=== PATIENT | male | born 1955 | race Caucasian/White ===

== ENCOUNTER 2022-07-14 09:06 | Emergency (ER) | payer OTHER ==
[~2022-07-14] VITALS: Ht 177.8 cm; Wt 84.4 kg
[2022-07-14 09:09] VITALS: BP_SYST 98
[2022-07-14] MEDS ORDERED: IBUPROFEN 600 MG TABLET PO ONE (09:30)
[2022-07-14] MEDS ORDERED: IBUP-1969 PO ×2 (11:08)
[2022-07-14 11:13] VITALS: BP_SYST 102
[2022-07-14] MEDS ORDERED: HYDROcodone/ACETAMIN 5-325 MG TAB (NORCO/ VICODIN) PO ONE (11:15)
[2022-07-14] MEDS ORDERED: QUET300T2 PO (14:49)
[2022-07-14] MEDS ORDERED: LISI40TA13 PO (14:49)
[2022-07-14] MEDS ORDERED: TRAZ-251 PO (14:49)
== END 2022-07-14 11:13 | disposition home or self-care (01) ==
LOC: SED 09:06
DX: S93.401A Sprain of unspecified ligament of right ankle, initial encounter (principal); Z79.899 Other long term (current) drug therapy; X50.1XXA Overexertion from prolonged static or awkward postures, initial encounter; Y93.89 Activity, other specified; Y92.89 Other specified places as the place of occurrence of the external cause; Y99.8 Other external cause status
CPT/HCPCS: 99284; 73610; 73620; J7030

== ENCOUNTER 2022-07-14 11:49 | Inpatient (IN) | payer OTHER ==
[~2022-07-14] VITALS: Ht 177.8 cm; Wt 79.8 kg
[~2022-07-14 11:49] MED LIST: IBUP-1969 PO
[2022-07-14 11:52] VITALS: BP_SYST 122
--- NOTE | 2022-07-14 11:55 | NUR ---
Placed in room 5 . Placed on cardiac cath technician, blood pressure machine and pulse oximeter. To gown for exam. Side rails up. Report given to GABRIELE VARGAS.
--- NOTE | 2022-07-14 11:58 | NUR ---
RECEIVED PT FROM GABRIELE PEREZ. PT HAS C/O FALLING ON HIS BOTTOM WHEN ATTEMPTING TO GET UP AND GET INTO UBER. DR. DENIS AT BEDSIDE TO ASSESS. SIDERAILS UP X2. PT DENIES PAIN.
[2022-07-14 12:36] LABS: BASOPHILS % (AUTO) 0.2 % (0.0-2.0); HEMATOCRIT 42.3 % (36-54); HEMOGLOBIN 14.4 g/dL (14.0-18.0); LYMPHOCYTES # (AUTO) 0.7 K/uL (1.0-5.5); LYMPHOCYTES % (AUTO) 5.8 % (20.5-51.5); MEAN CORPUSCULAR HEMOGLOBIN 33 pg (27-31); MEAN CORPUSCULAR HGB CONC 34 % (32-36); MEAN CORPUSCULAR VOLUME 96 fL (79.0-98.0); MONOCYTES # (AUTO) 0.9 K/uL (0.0-1.0); MONOCYTES % (AUTO) 7.3 % (1.7-9.3); NEUTROPHILS # (AUTO) 10.2 K/uL (1.8-7.7); NEUTROPHILS % (AUTO) 86.7 % (40.0-70.0); PLATELET COUNT (AUTO) 182 K/uL (130-430); RED BLOOD CELL COUNT(AUTO) 4.42 MIL/uL (4.2-6.2); RED CELL DISTRIBUTION WIDTH 12.9 % (9.0-15.0); WHITE BLOOD COUNT (AUTO) 11.7 K/uL (4.8-10.8)
[2022-07-14 12:38] LABS: ANION GAP 18 (5-15); CALCIUM 7.4 mg/dL (8.4-11.0); CHLORIDE 98 mmol/L (98-107); CREATININE 2.92 mg/dL (0.55-1.30); GLUCOSE 145 mg/dL (70-99); UREA NITROGEN, BLOOD 37 mg/dL (8-21)
--- NOTE | 2022-07-14 12:40 | NUR ---
URINE OBTAINED AND TAKEN TO LAB.
[2022-07-14 12:43] LABS: INR 1.1 (0.80-1.20)
[2022-07-14 12:44] LABS: ALANINE AMINOTRANSFERASE 82 U/L (12-78); ALBUMIN 3.9 g/dL (3.4-4.8); ASPARTATE AMINOTRANSFERASE 204 U/L (10-37)
[2022-07-14 12:45] LABS: ACETAMINOPHEN < 1 ug/mL (1-30); ALCOHOL, BLOOD < 3 mg/dL (<10); GFR AFRICAN AMERICAN 28 mL/min (>90)
[2022-07-14] MEDS ORDERED: NACL 0.9% 1,000 ML IV ONE ×3 (12:45→18:15)
--- NOTE | 2022-07-14 12:50 | NUR ---
MAURICIO NOBLE (EX-) [phone] FOR STATUS UPDATE
[2022-07-14 13:09] LABS: BILIRUBIN,URINE NEGATIVE (NEGATIVE); BLOOD, URINE 3+ (NEGATIVE); CLARITY/URINE CLEAR (CLEAR); COLOR,URINE YELLOW (YELLOW); GLUCOSE,URINE NEGATIVE (NEGATIVE); KETONES,URINE TRACE (NEGATIVE); LEUKOCYTE ESTERASE ,URINE NEGATIVE (NEGATIVE); NITRITE, URINE NEGATIVE (NEGATIVE); PH,URINE 5.5 (5.0-8.0); PROTEIN URINE 1+ (NEGATIVE); UROBILINOGEN,URINE 0.2 (0.2-1.0)
--- NOTE | 2022-07-14 13:13 | NUR ---
LACTIC ACID 6.9 REPORTED BY LAB. PRIMARY NURSE MADE AWARE.
[2022-07-14 13:22] LABS: BARBITURATE, URINE NEGATIVE (NEG <=200); BENZODIAZEPINE, URINE NEGATIVE (NEG <=150); CANNABINOID, URINE NEGATIVE (NEG <=50); COCAINE, URINE NEGATIVE (NEG <=150); METHAMPHETAMINES SCREEN,URINE NEGATIVE (NEG <=500); OPIATE, URINE NEGATIVE (NEG <=100); PHENCYCLIDINE SCREEN,URINE NEGATIVE (NEG <=25); UR TRICYCLIC ANTIDEPRESSANTS POSITIVE (NEG <=300); URINE AMPHETAMINE NEGATIVE (NEG <=500); URINE METHADONE NEGATIVE (NEG <=200); URINE OXYCODONE SCREEN NEGATIVE (NEG <=100); URINE PROPOXYPHENE SCREEN NEGATIVE (NEG <=300)
[2022-07-14] MEDS ORDERED: QUET300T2 PO (14:49)
[2022-07-14] MEDS ORDERED: LISI40TA13 PO (14:49)
[2022-07-14] MEDS ORDERED: TRAZ-251 PO (14:49)
[2022-07-14 14:55] LABS: BACTERIA,URINE FEW /HPF (None Seen); WBC,URINE 0-3 /HPF (0-3)
[2022-07-14 14:56] LABS: HYALINE CASTS, URINE 0-10 /LPF (None Seen)
--- NOTE | 2022-07-14 14:56 | NUR ---
COVID SWAB SENT TO LAB.
--- NOTE | 2022-07-14 17:25 | NUR ---
Admit bed requested Patient will be admitted to care of . Admitted to TELE unit. Diagnosis ELIOT & DEHYDRATION Inpatient (Yes or No) YES Observation (Yes or No) NO Orientation concerns or request close to nursing station (Yes or No) NO Covid Status NEGATIVE On vent or bipap NO Isolation requirements NO Needs a sitter NO From Home (Yes or if No enter name of facility) HOME Requires Dialysis (Yes or No) NO Med Rec Completed (Yes of No) YES
[2022-07-14] MEDS ORDERED: cefTRIAXone 1 GM IVPB PREMIX 50 ML IV ONE (18:15)
--- NOTE | 2022-07-14 18:18 | NUR ---
NS 1000ML BOLUS INTIATED, TO BE COMPLETED AT 1918, [place] IVPB GIVEN. PT DENIES PAIN.
--- NOTE | 2022-07-14 18:32 | NUR ---
DR. BALBUENA AT BEDSIDE TO ASSESS PT.
[2022-07-14] MEDS ORDERED: LORazepam 2 MG/ML VIAL IVP PRN (18:45)
--- NOTE | 2022-07-14 19:22 | NUR ---
ENDORSED ALL CARE TO GABRIELE TOPETE. ALL QUESTIONS AND CONCERNS ADDRESSED.
[2022-07-14] MEDS ORDERED: THIAMINE HCL 100 MG in NS 50 ML IV ONE (20:00)
[2022-07-14] MEDS ORDERED: PANTOPRAZOLE SODIUM 40 MG TAB PO ONE (20:00)
[2022-07-14] MEDS ORDERED: ASPIRIN 81 MG TABLET(ECOTRIN) PO ONE (20:00)
[2022-07-14] MEDS: 0.45% NACL 1,000 ML IV SCH (20:17)
[2022-07-14 20:51] LABS: CKMB RELATIVE INDEX 0.8 (0.0-2.9); CREATINE KINASE MB 46.5 ng/mL (0-3.6)
--- NOTE | 2022-07-14 21:04 | NUR ---
ADMISSION NOTE Received patient from ER via gurney. Patient admitted with diagnosis of ELIOT/dehydration. Patient is awake, alert, oriented X 4. Patient oriented to hospital room, call light, toileting (gave a urinal and offer bedpan), pain management and safety-teach back done. Patient informed that I ([facility]) will be his nurse and that their room number is 113-A. Pt is able to use call light for assistance with good return demonstration of safety measures and call light for assistance. Iv site of rt f/a patent, no ss/ any infiltration noted. NS @ 150ml/hr. VS 98.1, 20, 140/93,102, w7jeb=06% r/a. Rt ankle redness and ecchymosis s/p fall today. Rt foot (all toes redness and rt great toe dry scab)noted. will order wound care consult. Personal belongings checked and Belongings List documented. Fall precaution and Seizure precaution in place. Side railsx3, bed alarmed, Call light within reach. Cont to monitor pt. Addendum: 07/15/22 at 0246 by Bulmaro Mclain RN RN CORRECTION- IT'S 07/27 NS IVF, NOT NS.
[2022-07-14 21:05] VITALS: BP_SYST 140
--- NOTE | 2022-07-14 21:15 | NUR ---
Patient will be admitted to care of [facility]. Admitted to unit. Will go to room . Belongings list completed. Complete and up to date summary report printed. SBAR report to be given at bedside with opportunity for questions.
--- NOTE | 2022-07-14 21:20 | NUR ---
BEDPAN -Gave bedpan upon pt' request. pt stated that he wanted a bedpan for bowel movt. Pt just voided only yellow urine 200ml.
[2022-07-14 21:33] VITALS: BP_SYST 140
--- NOTE | 2022-07-15 00:38 | NUR ---
ROUNDS; -Pt is asleep. No s/s any acute distress noted. Bed alarmed, side rails x3, call light w/in reach. Cont to monitor pt.
[2022-07-15 00:43] VITALS: BP_SYST 148
--- NOTE | 2022-07-15 05:04 | NUR ---
CONSULTATION PAGED/CALLED Reason for Consultation: ELIOT Person Who was Notified: HERIBERTO Consulting Physician: Residential Subcontractor Specialty: Ordering Physician:
--- NOTE | 2022-07-15 05:22 | NUR ---
CONSULTATION PAGED/CALLED Reason for Consultation: ABNORMAL EKG Person Who was Notified: HERIBERTO Consulting Physician: RUBÉN Practical Nurse Clinical Coordinator Specialty: CARDIO Ordering Physician: DANIELITO
--- NOTE | 2022-07-15 05:28 | NUR ---
CONSULTATION PAGED/CALLED Reason for Consultation: ALOC Person Who was Notified: VIA TEXT Consulting Physician: Upper Trimmer Specialty: Ordering Physician:
--- NOTE | 2022-07-15 05:34 | NUR ---
BLADDER SCANNED -RESIDUAL 200ML OF BLADDER SCANNED.
--- NOTE | 2022-07-15 06:41 | NUR ---
CLOSING NOTES; -Pt is resting in bed comfortably. NO s/s any pain,sob,or any acute distress noted. pt's condition stable. IVF infusing well, no s/s any infiltration noted. bed alarmed, side rails x3, call light w/in reach. Will endorse to next nurse to cont care and to perform bladder scan q 6 hr and to straight catheter if residual than than 400ml and to notify md per md order.
[2022-07-15 08:45] LABS: BASOPHILS % (AUTO) 0.2 % (0.0-2.0); EOSINOPHILS # (AUTO) 0.1 K/uL (0.0-0.4); EOSINOPHILS % (AUTO) 1.7 % (0.0-4.0); HEMATOCRIT 36.7 % (36-54); HEMOGLOBIN 12.9 g/dL (14.0-18.0); LYMPHOCYTES # (AUTO) 1.2 K/uL (1.0-5.5); LYMPHOCYTES % (AUTO) 23.3 % (20.5-51.5); MEAN CORPUSCULAR HEMOGLOBIN 33 pg (27-31); MEAN CORPUSCULAR HGB CONC 35 % (32-36); MEAN CORPUSCULAR VOLUME 95 fL (79.0-98.0); MONOCYTES # (AUTO) 0.5 K/uL (0.0-1.0); MONOCYTES % (AUTO) 10.3 % (1.7-9.3); NEUTROPHILS # (AUTO) 3.4 K/uL (1.8-7.7); NEUTROPHILS % (AUTO) 64.5 % (40.0-70.0); PLATELET COUNT (AUTO) 153 K/uL (130-430); RED BLOOD CELL COUNT(AUTO) 3.88 MIL/uL (4.2-6.2); RED CELL DISTRIBUTION WIDTH 12.6 % (9.0-15.0); WHITE BLOOD COUNT (AUTO) 5.3 K/uL (4.8-10.8)
[2022-07-15 08:54] LABS: CALCIUM 7.7 mg/dL (8.4-11.0); CREATININE 0.93 mg/dL (0.55-1.30)
[2022-07-15 09:01] LABS: ALBUMIN 3.1 g/dL (3.4-4.8); PHOSPHORUS 2.1 mg/dL (2.7-4.5); TOTAL BILIRUBIN 1.3 mg/dL (0.0-1.0)
[2022-07-15] MEDS: 0.45% NACL 1,000 ML IV SCH ×3 (09:05→15:45)
[2022-07-15] MEDS: PANTOPRAZOLE SODIUM 40 MG TAB PO SCH (10:58)
[2022-07-15] MEDS: ASPIRIN 81 MG TABLET(ECOTRIN) PO SCH (10:58)
[2022-07-15] MEDS: FOLIC ACID 1 MG TABLET PO SCH (10:59)
[2022-07-15] MEDS: THIAMINE HCL 100 MG TABLET PO SCH (10:59)
[2022-07-15 11:44] VITALS: BP_SYST 142
[2022-07-15 15:29] VITALS: BP_SYST 132
[2022-07-15] MEDS ORDERED: QUEtiapine FUMARATE 25 MG TABLET PO SCH (18:00)
[2022-07-15] MEDS: QUEtiapine FUMARATE 100 MG TABLET PO SCH (18:35)
[2022-07-15 20:00] VITALS: BP_SYST 141
--- NOTE | 2022-07-15 20:00 | NUR ---
Opening note- pt awake and oriented. discussed about fall precaution and pt agreed. V/s stable afebrile.Tele- SR with PACS. H/L on Rt forearm.
[2022-07-15] MEDS: MEMANTINE HCL 5 MG TABLET PO SCH (20:54)
[2022-07-15] MEDS: TAMSULOSIN HCL 0.4 MG CAP PO SCH (20:54)
[2022-07-15] MEDS: TEMAZEPAM 15 MG CAPSULE PO PRN (20:55)
[2022-07-15] MEDS ORDERED: traZODone HCL 50 MG TABLET (DESYREL) PO SCH (21:00)
[2022-07-15] MEDS ORDERED: QUEtiapine FUMARATE 100 MG TABLET PO SCH (21:00)
--- NOTE | 2022-07-15 23:19 | NUR ---
CONSULTATION CALLED FOR DR. PARIS CONSULT OF DYSPHAGIA ORDER BY DR. ESTEVES SPOKE WITH MARGARITA
[2022-07-16 00:11] VITALS: BP_SYST 136
--- NOTE | 2022-07-16 06:47 | NUR ---
Closing note- pt remains stable. pt didn't try to get out bed. used urinal. continent of urine. No BM. Pending Urology consult today.
[2022-07-16 07:02] LABS: BASOPHILS % (AUTO) 0.2 % (0.0-2.0); EOSINOPHILS # (AUTO) 0.1 K/uL (0.0-0.4); EOSINOPHILS % (AUTO) 2.3 % (0.0-4.0); HEMATOCRIT 37.7 % (36-54); HEMOGLOBIN 13.1 g/dL (14.0-18.0); LYMPHOCYTES # (AUTO) 1.4 K/uL (1.0-5.5); LYMPHOCYTES % (AUTO) 27.8 % (20.5-51.5); MEAN CORPUSCULAR HEMOGLOBIN 33 pg (27-31); MEAN CORPUSCULAR HGB CONC 35 % (32-36); MEAN CORPUSCULAR VOLUME 94 fL (79.0-98.0); MONOCYTES # (AUTO) 0.4 K/uL (0.0-1.0); MONOCYTES % (AUTO) 8.9 % (1.7-9.3); NEUTROPHILS # (AUTO) 3.1 K/uL (1.8-7.7); NEUTROPHILS % (AUTO) 60.8 % (40.0-70.0); PLATELET COUNT (AUTO) 144 K/uL (130-430); RED BLOOD CELL COUNT(AUTO) 4.03 MIL/uL (4.2-6.2); RED CELL DISTRIBUTION WIDTH 12.8 % (9.0-15.0)
[2022-07-16 07:44] LABS: CALCIUM 8.2 mg/dL (8.4-11.0); CREATININE 0.77 mg/dL (0.55-1.30)
[2022-07-16 08:00] VITALS: BP_SYST 138
[2022-07-16 08:06] LABS: % FREE PSA 39.2 % (.); FREE PSA 3.72 ng/mL
[2022-07-16 08:09] LABS: CKMB RELATIVE INDEX 0.2 (0.0-2.9); CREATINE KINASE MB 8.8 ng/mL (0-3.6)
--- NOTE | 2022-07-16 08:40 | NUR ---
ATTENDING MD DR ESTEVES WAS CALLED, RE: CRITICAL K LEVEL. SPOKE TO DAVID.
[2022-07-16] MEDS ORDERED: POTASSIUM CHLORIDE 20 MEQ TAB.PRT.SR PO ONE ×2 (08:45→15:15)
--- NOTE | 2022-07-16 08:48 | NUR ---
Dr. Wang made aware of K+ level of 2.7 with order received to give K-Dur 60mg PO x1 now. Order made, noted, and carried out. Patient made aware of the potassium level and the new med order.
--- NOTE | 2022-07-16 08:54 | NUR ---
Per Dr Garland's office request, faxed FACE SHEET TO VERIFY INSURANCE.
[2022-07-16] MEDS: THIAMINE HCL 100 MG TABLET PO SCH (10:08)
[2022-07-16] MEDS: MEMANTINE HCL 5 MG TABLET PO SCH ×2 (10:09→21:43)
[2022-07-16] MEDS: PANTOPRAZOLE SODIUM 40 MG TAB PO SCH (10:09)
[2022-07-16] MEDS: FOLIC ACID 1 MG TABLET PO SCH (10:09)
[2022-07-16] MEDS: ASPIRIN 81 MG TABLET(ECOTRIN) PO SCH (10:10)
[2022-07-16] MEDS: TAMSULOSIN HCL 0.4 MG CAP PO SCH ×2 (10:10→21:43)
[2022-07-16 11:43] VITALS: BP_SYST 148
[2022-07-16] MEDS ORDERED: iohexoL 350 mgI/mL, 100 ML INFUS..BTL IV ONE (13:48)
[2022-07-16 16:10] VITALS: BP_SYST 130
[2022-07-16] MEDS: QUEtiapine FUMARATE 100 MG TABLET PO SCH (18:09)
[2022-07-16] MEDS: LR 1,000 ML IV SCH (18:13)
[2022-07-16 20:00] VITALS: BP_SYST 134
--- NOTE | 2022-07-16 20:00 | NUR ---
Opening note-pt's resting in bed without any distress. LR at 100 ml/hr infusing and pt used urinal.
[2022-07-16] MEDS: TEMAZEPAM 15 MG CAPSULE PO PRN (21:43)
[2022-07-16] MEDS: POTASSIUM CHLORIDE 20 MEQ TAB.PRT.SR PO SCH (21:44)
[2022-07-16] MEDS: MULTIVITAMINS TAB 1 TABLET PO SCH (21:44)
[2022-07-17] MEDS: LR 1,000 ML IV SCH (03:20)
--- NOTE | 2022-07-17 05:45 | NUR ---
Closing note- no c/o any distress. want to go home today.
--- NOTE | 2022-07-17 08:00 | NUR ---
RN NOTES AWAKE AND ALERT, NOT IN ACUTE DISTRESS, DENIES ANY FORM OF DISCOMFORT. SR ON THE MONITOR, SPO2 GOOD ON ROOM AIR.
[2022-07-17 08:15] LABS: PROSTATE SPECIFIC AG TOTAL 9.5 ng/mL (0.0-4.0)
[2022-07-17 08:52] LABS: BASOPHILS % (AUTO) 0.3 % (0.0-2.0); EOSINOPHILS # (AUTO) 0.1 K/uL (0.0-0.4); EOSINOPHILS % (AUTO) 2.8 % (0.0-4.0); HEMATOCRIT 38.2 % (36-54); HEMOGLOBIN 13.1 g/dL (14.0-18.0); LYMPHOCYTES # (AUTO) 1.2 K/uL (1.0-5.5); LYMPHOCYTES % (AUTO) 28.1 % (20.5-51.5); MEAN CORPUSCULAR HEMOGLOBIN 32 pg (27-31); MEAN CORPUSCULAR HGB CONC 34 % (32-36); MEAN CORPUSCULAR VOLUME 94 fL (79.0-98.0); MONOCYTES # (AUTO) 0.4 K/uL (0.0-1.0); MONOCYTES % (AUTO) 10.5 % (1.7-9.3); NEUTROPHILS # (AUTO) 2.5 K/uL (1.8-7.7); NEUTROPHILS % (AUTO) 58.3 % (40.0-70.0); PLATELET COUNT (AUTO) 147 K/uL (130-430); RED BLOOD CELL COUNT(AUTO) 4.05 MIL/uL (4.2-6.2); RED CELL DISTRIBUTION WIDTH 12.9 % (9.0-15.0); WHITE BLOOD COUNT (AUTO) 4.3 K/uL (4.8-10.8)
[2022-07-17] MEDS ORDERED: FOLIC ACID 1 MG TABLET PO SCH (09:00)
[2022-07-17] MEDS: ASPIRIN 81 MG TABLET(ECOTRIN) PO SCH (09:09)
[2022-07-17] MEDS: FOLIC ACID 1 MG TABLET PO SCH (09:09)
[2022-07-17] MEDS: TAMSULOSIN HCL 0.4 MG CAP PO SCH (09:09)
[2022-07-17] MEDS: PANTOPRAZOLE SODIUM 40 MG TAB PO SCH (09:09)
[2022-07-17] MEDS: POTASSIUM CHLORIDE 20 MEQ TAB.PRT.SR PO SCH (09:10)
[2022-07-17] MEDS: MULTIVITAMINS TAB 1 TABLET PO SCH (09:10)
[2022-07-17] MEDS: MEMANTINE HCL 5 MG TABLET PO SCH (09:10)
[2022-07-17] MEDS: THIAMINE HCL 100 MG TABLET PO SCH (09:10)
[2022-07-17 09:15] LABS: CALCIUM 8.2 mg/dL (8.4-11.0); CREATININE 0.57 mg/dL (0.55-1.30); TOTAL BILIRUBIN 0.8 mg/dL (0.0-1.0)
[2022-07-17 12:40] VITALS: BP_SYST 108
[2022-07-17] MEDS ORDERED: POTASSIUM CHLORIDE 20 MEQ TAB.PRT.SR PO ONE ×2 (14:30→17:15)
[2022-07-17] MEDS ORDERED: CHOLECALCIFEROL (VITAMIN D3) 2,000 UNIT TABLET PO ONE (15:15)
--- NOTE | 2022-07-17 15:30 | NUR ---
CONSULTATION PAGED/CALLED Reason for Consultation: BASHIR MORENO Person Who was Notified: KENDY Consulting Physician: BASHIR CORONA Ordering Physician: SPENCER ESTEVES
--- NOTE | 2022-07-17 16:30 | NUR ---
RN NOTES DR. ESTEVES HERE TO SEE PATIENT, SPOKE TO SON RE: PLAN OF CARE. WILL CALL AND CONSULT DR. MORENO , RE: HERNIA REPAIR
[2022-07-17 16:40] VITALS: BP_SYST 145
[2022-07-17] MEDS ORDERED: Potassium Chloride PO (16:44)
[2022-07-17] MEDS ORDERED: Thiamine Hcl PO (16:44)
[2022-07-17] MEDS ORDERED: Aspirin Ec PO (16:44)
[2022-07-17] MEDS ORDERED: FOLI-43 PO (16:44)
[2022-07-17] MEDS ORDERED: VITD2000 PO (16:44)
[2022-07-17] MEDS ORDERED: MULT400T13 PO (16:44)
[2022-07-17] MEDS ORDERED: QUET300T2 PO (16:44)
[2022-07-17] MEDS ORDERED: TAMS0.4C96 PO (16:44)
[2022-07-17] MEDS ORDERED: PRO40 PO (16:44)
--- NOTE | 2022-07-17 16:45 | NUR ---
RN NOTES DR. MORENO CALLED BACK, HE'S NOT ABLE TO SEE PATIENT TODAY. (out of town)
[2022-07-17] MEDS ORDERED: POTASSIUM CHLORIDE 20 MEQ TAB.PRT.SR PO SCH (17:00)
--- NOTE | 2022-07-17 17:00 | NUR ---
RN NOTES REPEAT K+ 3.7
[2022-07-17 17:44] VITALS: BP_SYST 142
--- NOTE | 2022-07-17 18:46 | NUR ---
RN NOTES PATIENT DISCHARGED HOME IN STABLE CONDITION, CARE OF SON ROBERTO. DISCHARGE INSTRUCTION GIVEN.
[2022-07-17] MEDS: QUEtiapine FUMARATE 100 MG TABLET PO SCH (19:02)
[2022-07-18] MEDS ORDERED: CHOLECALCIFEROL (VITAMIN D3) 2,000 UNIT TABLET PO SCH (09:00)
== END 2022-07-17 19:10 | disposition home or self-care (01) | DRG 913 ==
LOC: SED 11:49 → STU 17:11
PROVIDERS: ADMIT Internal Medicine; ATTEND Internal Medicine
DX: S89.91XA Unspecified injury of right lower leg, initial encounter (principal); R65.11 Systemic inflammatory response syndrome (SIRS) of non-infectious origin with acute organ dysfunction; N17.9 Acute kidney failure, unspecified; F02.818 Dementia in other diseases classified elsewhere, unspecified severity, with other behavioral disturbance; M62.82 Rhabdomyolysis; K70.10 Alcoholic hepatitis without ascites; E86.0 Dehydration; S09.90XA Unspecified injury of head, initial encounter; I10 Essential (primary) hypertension; F19.90 Other psychoactive substance use, unspecified, uncomplicated; F17.200 Nicotine dependence, unspecified, uncomplicated; W18.39XA Other fall on same level, initial encounter; N28.9 Disorder of kidney and ureter, unspecified; N40.0 Benign prostatic hyperplasia without lower urinary tract symptoms; Z20.822 Contact with and (suspected) exposure to COVID-19; S93.401A Sprain of unspecified ligament of right ankle, initial encounter; K80.20 Calculus of gallbladder without cholecystitis without obstruction; K40.90 Unilateral inguinal hernia, without obstruction or gangrene, not specified as recurrent; G20 Parkinson's disease; Y92.009 Unspecified place in unspecified non-institutional (private) residence as the place of occurrence of the external cause; Z79.899 Other long term (current) drug therapy; Y93.89 Activity, other specified; Y99.8 Other external cause status
CPT/HCPCS: 36415; 70450-TC; 70551; 71045; 76376; 76770; 80053; 80178; 80307; 81000; 82009; 82550; 82553; 82962; 83605; 83735; 83880; 84100; 84132; 84153; 84484; 85025; 85610-TC; 85730-TC; 87040; 93005; 93306; 93880; 99285; G0378; G0480; G0481; G0482; J0696; J2060; J3411; J7030; J7120; Q9967

== ENCOUNTER 2022-10-27 11:01 | Emergency (ER) | payer OTHER ==
[~2022-10-27] VITALS: Ht 160 cm; Wt 67.1 kg
[~2022-10-27 11:01] MED LIST changes: +Aspirin Ec PO; +FOLI-43 PO; -IBUP-1969 PO; +MULT400T13 PO; +PRO40 PO; +Potassium Chloride PO; +QUET300T2 PO; +TAMS0.4C96 PO; +TRAZ-251 PO; +Thiamine Hcl PO; +VITD2000 PO
--- NOTE | 2022-10-27 11:02 | NUR ---
Naye- AT BEDSIDE PT ARRIVED VIA [facility] ON [facility]. PT ARRIVED ALERT AND ANSWERING QUESTIONS APPROPRIATELY WITH SLURRED SPEECH. MEDIC REPORTED PT WAS FOUND UNRESPONSIVE AT HOME AND PT WOKE UP IN AMBULANCE AND REPORTED ETOH USE. UPON SPEAKING TO PT HE REPORTED THAT HE NORMALLY HAS 4 PINTS OF VODKA A DAY BUT DENIES HAVING THAT MUCH EARLIER. PT ATTACHED TO BEDSIDE MONITOR; PT SINUS TACHYCARDIC AND HYPOTENSIVE BUT DENIES DIZZINESS, N/V/D, BLURRY VISION, CP AND SOB. WHEN PT WAS ASKED DOES HE FEEL LIKE HIS NORMAL SELF HE REPLIED, "YEAH, I DONT EVEN KNOW WHY IM HERE." SIDE RAILS UP X2; PT PLACED IN GOWN. PT PENDING ORDERS AT THIS TIME.
--- NOTE | 2022-10-27 11:02 | NUR ---
Placed in room 02 . Placed on personnel monitor, blood pressure machine and pulse oximeter. To gown for exam. Side rails up. Report given to RENETTA SUAZO.
[2022-10-27 11:03] VITALS: BP_SYST 67
[2022-10-27 11:56] LABS: BASOPHILS % (AUTO) 0.2 % (0.0-2.0); EOSINOPHILS % (AUTO) 0.1 % (0.0-4.0); HEMATOCRIT 37.5 % (36-54); HEMOGLOBIN 12.5 g/dL (14.0-18.0); LYMPHOCYTES # (AUTO) 0.6 K/uL (1.0-5.5); LYMPHOCYTES % (AUTO) 11.5 % (20.5-51.5); MEAN CORPUSCULAR HEMOGLOBIN 33 pg (27-31); MEAN CORPUSCULAR HGB CONC 33 % (32-36); MEAN CORPUSCULAR VOLUME 100 fL (79.0-98.0); MONOCYTES # (AUTO) 0.5 K/uL (0.0-1.0); MONOCYTES % (AUTO) 9.3 % (1.7-9.3); NEUTROPHILS # (AUTO) 3.9 K/uL (1.8-7.7); NEUTROPHILS % (AUTO) 78.9 % (40.0-70.0); PLATELET COUNT (AUTO) 186 K/uL (130-430); RED BLOOD CELL COUNT(AUTO) 3.75 MIL/uL (4.2-6.2); RED CELL DISTRIBUTION WIDTH 15.2 % (9.0-15.0)
[2022-10-27] MEDS ORDERED: NACL 0.9% 2,000 ML IV ONE (12:00)
[2022-10-27 12:15] LABS: INR 1.2 (0.80-1.20); PROTHROMBIN TIME 11.9 SECS (9.5-12.5)
[2022-10-27 12:26] LABS: ANION GAP 23 (5-15); CALCIUM 8.1 mg/dL (8.4-11.0); CHLORIDE 100 mmol/L (98-107); CREATININE 1.02 mg/dL (0.55-1.30); GFR AFRICAN AMERICAN 94 mL/min (>90); GLUCOSE 129 mg/dL (70-99); UREA NITROGEN, BLOOD 10 mg/dL (8-21)
[2022-10-27 12:30] LABS: ALANINE AMINOTRANSFERASE 28 U/L (12-78); ALBUMIN 3.2 g/dL (3.4-4.8); ALCOHOL, BLOOD 35 mg/dL (<10); AMYLASE 29 U/L (0-100); ASPARTATE AMINOTRANSFERASE 22 U/L (10-37); LIPASE 167 U/L (73-393); TOTAL BILIRUBIN 0.7 mg/dL (0.0-1.0)
--- NOTE | 2022-10-27 12:30 | NUR ---
PT REMAINS A&OX 4 AND MANAGING HIS SECRETIONS WITH A PATENT AIRWAY AND WITHOUT ANY RESTLESS MOVEMENTS. PT DENIES N/V/D, CP AND SOB AND PT IS PENDING RESULTS. PT IS NOW NORMOTENSIVE AT 103/53 AND SINUS TACHYCARDIA HAS IMPROVED WITH HR BEING 108 ON LANGUAGE ASST. PT PENDING FURTHER ORDERS AT THIS TIME.
[2022-10-27 12:38] LABS: ACETONE, SERUM NEGATIVE (NEGATIVE)
[2022-10-27] MEDS ORDERED: LORA-259 PO (13:41)
[2022-10-27] MEDS ORDERED: LORazepam 1 MG TABLET PO ONE (13:45)
--- NOTE | 2022-10-27 14:00 | NUR ---
PT REMAINS STABLE AND IS PENDING FURTHER ORDERS AT THIS TIME. PT IS A&OX 4 WITH PATENT AIRWAY AND NO C/O PAIN. VSS.
--- NOTE | 2022-10-27 14:53 | NUR ---
Patient given written and verbal discharge instructions and verbalizes understanding. ER MD discussed with patient the results and treatment provided. Patient in stable condition. ID arm band removed. IV catheter removed intact and dressing applied, no active bleeding. Rx SENT TO PHARMACY. Opportunity for questions provided and answered. Medication side effect fact sheet provided. PT AMBULATED OUT OF ED WITH A STEADY GAIT AND WITHOUT C/O PAIN.
[2022-10-27 16:00] VITALS: BP_SYST 148
== END 2022-10-27 14:53 | disposition home or self-care (01) ==
LOC: SED 11:01
DX: F10.10 Alcohol abuse, uncomplicated (principal); I10 Essential (primary) hypertension; Z79.899 Other long term (current) drug therapy; Y90.6 Blood alcohol level of 120-199 mg/100 ml
CPT/HCPCS: 99285; 96360; 80053; 82009; 82140; 82150; 83690; 85025; 85610; 85730; 36415; 83605; G0482; J7030